=== PATIENT | female | born 1995 | race African-American/Black ===

== ENCOUNTER 2021-07-06 06:25 | Emergency (ER) | payer OTHER ==
[~2021-07-06] VITALS: Ht 170.2 cm; Wt 77.1 kg
== END 2021-07-06 10:52 | disposition home or self-care (01) ==
LOC: ER 06:25
DX: K52.89 Other specified noninfective gastroenteritis and colitis (principal); Z91.013 Allergy to seafood; Z88.0 Allergy status to penicillin; Z88.6 Allergy status to analgesic agent